=== PATIENT | male | born 1985 | race Caucasian/White ===

== ENCOUNTER 2016-11-17 11:35 | Inpatient (IN) ==
[2016-11-17] MEDS ORDERED: ASPIRIN PO STA (11:51)
[2016-11-17 12:12] LABS: MANUAL DIFF NEEDED? NO
[2016-11-17 12:15] LABS: BASO% 0.3 % (0.0-0.8); EOS# 0.14 X1000 (0.0-0.7); HEMATOCRIT 48.5 % (42.0-52.0); HEMOGLOBIN 16.7 g/dL (14.0-18.0); LYMPH# 1.82 X1000 (1.2-3.4); LYMPH% 25.7 % (20.5-51.1); MCH 30.6 PG (27-31); MCHC 34.4 g/dL (33-37); MCV 88.8 FL (81-99); MONO# 0.75 X1000 (0.11-0.59); MONO% 10.6 % (1.7-9.3); MPV 10.2 FL (7.4-10.4); NEUT% 61.4 % (42.2-75.2); PLT 274 X1000 (130-400); RBC 5.46 XMIL (4.7-6.1)
--- NOTE | 2016-11-17 12:20 | Diag Imaging Result Doc PS360 ---
EXAM: CHEST-2 VIEWS HISTORY: CP TECHNIQUE: Two views COMPARISON: 10/14/2016 FINDINGS: The lungs are well expanded. The heart is not enlarged. The vessels are not distended. There are no infiltrates. No pleural effusions. IMPRESSION: No acute abnormality. Electronically signed by Dk Agarwal 11/17/2016 12:18 PM
[2016-11-17 12:21] LABS: INR 0.96; PROTIME 10.1 Seconds (9.2-11.7); PTT 29.7 Seconds (22.0-36.0)
[2016-11-17 12:33] LABS: AGAP 16; ALBUMIN 5.1 g/dL (3.5-5.0); ALKALINE PHOSPHATASE 102 U/L (32-122); BUN 14 mg/dL (8-22); CALCIUM 9.3 mg/dL (8.8-10.2); CHLORIDE 102 mmol/L (98-107); CK PROFILE 332 U/L (24-204); COSMO 281; GOT 35 U/L (10-34); GPT 46 U/L (10-44); MAGNESIUM 2.3 mg/dL (1.5-2.7); POTASSIUM 4.2 mmol/L (3.5-5.1); SODIUM 140 mmol/L (136-145); TCO2 22 mmol/L (25-35); TOTAL BILIRUBIN 0.44 mg/dL (0.20-1.00); TOTAL PROTEIN 7.4 g/dL (6.3-8.3)
[2016-11-17 12:47] LABS: CK-MB 3.46 ng/mL (0.0-5.0)
[2016-11-17] MEDS ORDERED: ZOFRAN IV ONE (12:56)
[2016-11-17] MEDS ORDERED: NS 1,000 ML IV ONE (12:56)
[2016-11-17] MEDS ORDERED: MORPHINE IV ONE (12:56)
--- NOTE | 2016-11-17 13:56 | EKG Report ---
Test Performed on : 11/17/2016 11:52:19 AM Test Reason : Chest Pain Blood Pressure : / mmHG Vent. Rate : 074 BPM Atrial Rate : 074 BPM P-R Int : 128 ms QRS Dur : 084 ms QT Int : 370 ms P-R-T Axes : 038 053 011 degrees QTc Int : 410 ms Normal sinus rhythm. Normal ECG No previous ECGs available Unconfirmed Result
--- NOTE | 2016-11-17 14:06 | Diag Imaging Result Doc PS360 ---
EXAM: CT THORAX/ABDOMEN/PELVIS HISTORY: CP, LUQ PAIN, N/V, HX ALCOHOLISM TECHNIQUE: CT of the chest with intravenous contrast and dose reduction; CT of the abdomen and pelvis with intravenous contrast and dose reduction (clarity.) COMMENT: There are no abnormal fluid collections. There is no evidence of significant adenopathy. There is dependent atelectasis in both lower lobes. There is no evidence of acute pulmonary parenchymal disease otherwise. ABDOMEN: The liver, spleen, adrenal glands, pancreas and gallbladder are unremarkable. The kidneys are without evidence of hydronephrosis or mass. There is no evidence of bowel obstruction or significant adenopathy. Pelvis: The appendix is not distended or inflamed in appearance. There is some gas and stool in the distal colon. The urinary bladder is unremarkable. There is vacuum disc phenomenon at L5-S1 and bilateral spondylolysis at L5. No evidence of acute bony abnormality is present. IMPRESSION: No acute disease. Electronically signed by Noam Costa 11/17/2016 2:04 PM
[2016-11-17] MEDS ORDERED: G.I. COCKTAIL PO ONE (14:12)
--- NOTE | 2016-11-17 14:30 | PROVIDER DOCUMENTATION ---
HPI-Abdominal Pain/GI Problem - General Chief Complaint: Chest Pain Stated Complaint: GENERAL Time Seen by Provider: 11/17/16 12:44 Source: patient Allergies/Adverse Reactions: Patient Allergies Allergy/AdvReac Type Severity Reaction Status Date / Time No Known Allergies Allergy Verified 11/17/16 12:35 Home Medications: Home Medication List Medication Instructions Recorded Confirmed Last Taken Type NK [No Home Medications] 11/17/16 11/17/16 Unknown History - History of Present Illness-ABD Nature of Presenting Problems: PT STS HE WOKE UP THIS MORNING WITH CHEST, ABD PAIN, AND LEFT ARM PAIN WITH N/ V. STS HE WENT ON TO WORK, BUT THEN PAIN GOT WORSE SO HE CAME TO ER. DENIES CARDIAC HX. STS WAS FORMER ALCOHOLIC BUT STOPPED DRINKING 2 YEARS AGO WHEN HE GOT A GOOD JOB. Abdominal Pain Onset Location: reports: LUQ, epigastric Pain Radiation: reports: chest Quality of Pain: reports: sharp Severity in ED: reports: moderate Onset/Duration: reports: this morning Timing: reports: still present Associated Symptoms: reports: arm pain, chest pain, nausea, vomiting. denies: constipation, diaphoresis, diarrhea, shortness of breath, pain with inspiration Review of Systems - Adult - REVIEW OF SYSTEMS - ADULT Constitutional: reports: no symptoms reported. denies: fever Eyes: reports: no symptoms reported. denies: blurred vision Ears, Nose, Mouth & Throat: reports: no symptoms reported Cardiovascular: reports: see HPI, chest pain. denies: palpitations, syncope Respiratory: reports: no symptoms reported. denies: shortness of breath Gastrointestinal: reports: see HPI, abdominal pain, nausea, vomiting. denies: constipation, diarrhea Genitourinary: reports: no symptoms reported. denies: dysuria Musculoskeletal: reports: no symptoms reported Integumentary: reports: no symptoms reported Neurological: reports: no symptoms reported Psychiatric: reports: no symptoms reported Endocrine: reports: no symptoms reported Hematologic/Lymphatic: reports: no symptoms reported Allergic/Immunologic: reports: no symptoms reported All Other Systems: Reviewed and Negative Past History - Adult - PAST MEDICAL HISTORY-ADULT Review of Records: reports: Nursing Assessment Review, Medications Reviewed, Social history reviewed & non-contributory. Major Childhood Illnesses: reports: denies history Cardiovascular: reports: denies history Respiratory: reports: denies history Gastrointestinal: reports: denies history Genitourinary: reports: denies history Musculoskeletal: reports: denies history Neurological: reports: Seizures/Epilepsy Psychiatric: reports: bipolar Endocrine/Immune: reports: denies history - SOCIAL HISTORY Smoking: cigarettes Provider spent 3-5 mins advising pt. on dangers of tobacco.: Discussed manners to quit use, and f/u contacts for add'l counseling. Substance Use: none presently/history of abuse Alcohol Use Frequency: sober (former use) Physical Exam-General - PHYSICAL EXAM-ADULT Initial Vital Signs Reviewed: Yes - CONSTITUTIONAL General Appearance: appears well, alert, mild distress - EYES Eyes: PERRL/EOMI, pink conjunctivae - HEAD, EARS, NOSE, MOUTH & THROAT HENMT: moist mucous membranes - RESPIRATORY Respiratory: chest non-tender, lungs clear, normal breath sounds, no pleuratic chest pain, no respiratory distress, no accessory muscle use. negative: rhonchi , wheezing - CARDIOVASCULAR Cardiovascular: regular rate, rhythm - GASTROINTESTINAL (ABDOMEN) Abdominal Exam: normal bowel sounds, soft, no organomegaly, no pulsatile mass, tenderness (EPIGASTRIC AND LUQ). negative: distended, guarding, rigid - MUSCULOSKELETAL Back Exam: normal inspection, no CVA tenderness, no vertebral tenderness Extremity: normal range of motion, normal gait, normal capillary refill - SKIN Integumentary: normal color, normal turgor, warm/dry - NEUROLOGIC Neurologic: grossly normal, no motor/sensory deficits - PSYCHIATRIC Psych/Mental Status: normal mood/affect, oriented x 3 Progress - PLAN OF CARE/RESULTS Progress/Plan/Lab Results: Vital Signs - 8 hr 11/17/16 11:47 11/17/16 12:43 11/17/16 14:25 Temperature 98.3 F 98.3 F Pulse Rate 82 78 82 Respiratory Rate 18 17 18 Blood Pressure 171/106 152/92 152/95 O2 Sat by Pulse Oximetry 100 99 100 Laboratory Results - last 24 hr 11/17/16 11/17/16 11/17/16 11:57 11:57 11:57 WBC 7.09 RBC 5.46 Hgb 16.7 Hct 48.5 MCV 88.8 MCH 30.6 MCHC 34.4 RDW Std Deviation 12.4 Plt Count 274 MPV 10.2 Immature Gran % (Auto) 0.0 Neut % (Auto) 61.4 Lymph % (Auto) 25.7 [place] % (Auto) 10.6 H Eos % (Auto) 2.0 Baso % (Auto) 0.3 Immature Gran # (Auto) 0.00 Neut # (Auto) 4.36 Lymph # (Auto) 1.82 [place] # (Auto) 0.75 H Eos # (Auto) 0.14 Baso # (Auto) 0.02 PT INR PTT (Actin FS) D-Dimer 0.21 Sodium 140 Potassium 4.2 Chloride 102 Carbon Dioxide 22 L Anion Gap 16 BUN 14 Creatinine 0.9 Estimated GFR/1.73 m2 > 60 BUN/Creatinine Ratio 16 Glucose 110 H Calculated Osmolality 281 Calcium 9.3 Magnesium 2.3 Total Bilirubin 0.44 AST 35 H ALT 46 H Alkaline Phosphatase 102 Creatine Kinase 332 H Creatine Kinase Index 1.0 CK-MB (CK-2) 3.46 Troponin T Lhi-G-Xyjqimxccqn Pept Total Protein 7.4 Albumin 5.1 H Globulin 2.3 Albumin/Globulin Ratio 2.2 Amylase Lipase 11/17/16 11/17/16 11/17/16 11:57 11:57 11:57 WBC RBC Hgb Hct MCV MCH MCHC RDW Std Deviation Plt Count MPV Immature Gran % (Auto) Neut % (Auto) Lymph % (Auto) [place] % (Auto) Eos % (Auto) Baso % (Auto) Immature Gran # (Auto) Neut # (Auto) Lymph # (Auto) [place] # (Auto) Eos # (Auto) Baso # (Auto) PT 10.1 INR 0.96 PTT (Actin FS) 29.7 D-Dimer Sodium Potassium Chloride Carbon Dioxide Anion Gap BUN Creatinine Estimated GFR/1.73 m2 BUN/Creatinine Ratio Glucose Calculated Osmolality Calcium Magnesium Total Bilirubin AST ALT Alkaline Phosphatase Creatine Kinase Creatine Kinase Index CK-MB (CK-2) Troponin T < 0.010 Evk-M-Uwwwwdrnhca Pept < 5 L Total Protein Albumin Globulin Albumin/Globulin Ratio Amylase Lipase 11/17/16 11/17/16 11:57 11:57 WBC RBC Hgb Hct MCV MCH MCHC RDW Std Deviation Plt Count MPV Immature Gran % (Auto) Neut % (Auto) Lymph % (Auto) [place] % (Auto) Eos % (Auto) Baso % (Auto) Immature Gran # (Auto) Neut # (Auto) Lymph # (Auto) [place] # (Auto) Eos # (Auto) Baso # (Auto) PT INR PTT (Actin FS) D-Dimer Sodium Potassium Chloride Carbon Dioxide Anion Gap BUN Creatinine Estimated GFR/1.73 m2 BUN/Creatinine Ratio Glucose Calculated Osmolality Calcium Magnesium Total Bilirubin AST ALT Alkaline Phosphatase Creatine Kinase Creatine Kinase Index CK-MB (CK-2) Troponin T Uwn-R-Utjbjokqhpk Pept Total Protein Albumin Globulin Albumin/Globulin Ratio Amylase 35 Lipase 37 Orders Category Date Time Status Saline Loc NOW Care 11/17/16 12:56 Active CHEST-2 VIEWS [RAD] Stat Exams 11/17/16 11:[address] THORAX/ABDOMEN/PELVIS [CT] Stat Exams 11/17/16 13:20 Completed AMYLASE [CHEM] Stat Lab 11/17/16 11:57 Completed CBC WITH ELECTRONIC DIFF [HEME] Stat Lab 11/17/16 11:57 Completed CK PROFILE [SP CHEM] Stat Lab 11/17/16 11:57 Completed CK PROFILE [SP CHEM] Stat Lab 11/17/16 14:10 Uncollected COMPREHENSIVE METABOLIC PANEL [CHEM] Stat Lab 11/17/16 11:57 Completed D-DIMER [CHEM] Stat Lab 11/17/16 11:57 Completed LIPASE [CHEM] Stat Lab 11/17/16 11:57 Completed MAGNESIUM [CHEM] Stat Lab 11/17/16 11:57 Completed PRO B-NATRIURETIC PEPTIDE Stat Lab 11/17/16 11:57 Completed PROTIME WITH INR [COAG] Stat Lab 11/17/16 11:57 Completed PTT [COAG] Stat Lab 11/17/16 11:57 Completed TROPONIN T Stat Lab 11/17/16 11:57 Completed TROPONIN T Stat Lab 11/17/16 14:11 Uncollected 0.9% Sodium Chloride Inj [Ns] 1,000 ml Med 11/17/16 12:56 Discontinued IV 999 mls/hr Aspirin Med 11/17/16 11:51 Discontinued 325 mg PO STAT STA Lido/Ross Alk/Al&mg Hydrox [G.i. Cocktail] Med 11/17/16 14:12 Discontinued 30 ml PO NOW ONE Morphine Med 11/17/16 12:56 Discontinued 4 mg IV NOW ONE Ondansetron [Zofran] Med 11/17/16 12:56 Discontinued 4 mg IV NOW ONE EKG [EKG] Stat Ther 11/17/16 11:51 Draft EKG [EKG] Stat Ther 11/17/16 14:12 Ordered DISCUSSED PT EXAM, HX, LABS, AND IMAGING WITH DR. SANABRIA WHO AGREES WITH DECISION TO ADMIT. Result Diagrams: 11/17/16 11:57 11/17/16 11:57 - XRAY 1 XRAY Study: Chest Impression: Normal, See EMR Report XRAY Interpretation: NEGATIVE.-DR. RAMOS - CT/MRI 1 CT Study: Abdomen, Pelvis, Thorax Impression: Normal, See EMR Report CT Results: NEGATIVE.-DR. WILD - CONSULTS/PCP/HOSPITALIST Notification #1 *Consult/PCP/Hospitalist*: [facility] [place] FOR DR. PURVIS Time Discussed: 15:40 Consult Disposition: Admit Departure - Departure Date of Disposition Decision: 11/17/16 Time of Disposition Decision: 15:40 DIAGNOSIS: Elevated CPK Abdominal pain Qualifiers: Abdominal location: left upper quadrant Qualified Code(s): R10.12 - Left upper quadrant pain Nausea & vomiting Qualifiers: Vomiting type: unspecified Vomiting Intractability: non-intractable Qualified Code(s): R11.2 - Nausea with vomiting, unspecified Disposition: ADMITTED INPATIENT 09 Certified Medical Emergency: Emergent Condition: Good Referrals and Follow-Ups: None,PCP [Primary Care Provider] - Discharge Education: Smoking Cessation, Tips for Success - Critical Care Note This patient required my direct & personal management of CC.: No Attestation - Physician/ CHRISTIAN Attestation Patient care was provided by Advanced Practice Provider:: Yes Advanced Practice Provider:: Allyson Eller Advanced Practice Provider documentation review:: The Mid-level provider documentation, treatment plan and medical decision making was reviewed by the physician who agrees with all treatment and medical decision making by the [facility]. The physician spent face to face time with patient:: No Advanced Practice Provider documentation review:: Supervising physician onsite and consulted in the evaluation and care of this patient. The physician did not have a face to face encounter with the patient.
[2016-11-17 15:19] LABS: CK INDEX 0.6 (0.0-2.5); CK-MB 4.43 ng/mL (0.0-5.0)
[2016-11-17 16:52] LABS: URINE CULTURE NEEDED? NO; URINE MICRO REVIEW NEEDED? NO; URINE SOURCE CLEAN CATCH
[2016-11-17 16:59] LABS: BILIRUBIN URINE NEGATIVE (NEGATIVE); BLOOD URINE NEGATIVE (NEGATIVE); COLOR YELLOW; GLUCOSE URINE NEGATIVE (NEGATIVE); LEUKOCYTES URINE NEGATIVE (NEGATIVE); NITRITE URINE NEGATIVE (NEGATIVE); PROTEIN URINE TRACE mg/dL (NEGATIVE); TURBIDITY URINE CLEAR (CLEAR); UROBILINOGEN URINE NORMAL (NORMAL)
[2016-11-17 17:03] LABS: UR EPITHELIAL CELLS <10 /HPF (<10); URINE BACTERIA NEGATIVE /HPF; URINE RBC <10 /HPF (<10); URINE WBC <10 /HPF (<10)
[2016-11-17 17:04] LABS: SP GRAVITY URINE 1.015
[2016-11-17] MEDS ORDERED: NITROGLYCERIN SL PRN (19:16)
[2016-11-17] MEDS ORDERED: ZOFRAN IV PRN (19:16)
--- NOTE | 2016-11-17 19:53 | HISTORY AND PHYSICAL ---
HISTORY OF PRESENT ILLNESS: He reports that this morning he started having nausea, experienced some left-sided chest pain. This continued to persist. The pain seemed to radiate down his left side. He said he had a little water and maybe a sausage biscuit this morning. He denies any past medical history. He denies being on any medications. He apparently has not had this before. SOCIAL HISTORY: He denies alcohol. He denies smoking. He does construction, puts shingles up on the roof. FAMILY HISTORY: Father apparently with a history of seizures and stroke and heart attack. REVIEW OF SYSTEMS: He does not report any change in weight or fever or chills. No change in his bowels. No gross hematuria or dysuria. No focal neurologic changes. Just today basically nausea and nondescript left-sided chest pain. PHYSICAL EXAMINATION: VITAL SIGNS: Temperature 97.4, pulse 62, respirations 18, blood pressure 154/85. Weight 186 pounds. Height 6 feet. HEENT: Pupils are equal, round. LUNGS: Clear in all lung noel. CARDIOVASCULAR: Regular rhythm and rate without murmur or S3. ABDOMEN: Soft. SKIN: Warm and dry. LABORATORY DATA: White count 7090, hematocrit 48, platelet count 274,000. Sodium 140, potassium 4.2, chloride 102, bicarb 22, BUN 14, creatinine 0.9, blood sugar 110. CPK 717 but his troponin was less than 0.01. Pro-time is 10.1, PTT is 29. Urinalysis unremarkable. Chest, abdominal and pelvic CT: No acute disease. Abdomen, liver, spleen, glands, pancreas, gallbladder all unremarkable. CT of the chest: No abnormal fluid collections or infiltrates. There is dependent atelectasis in both lower lobes. X-ray: No acute abnormality. ASSESSMENT AND PLAN: Nausea, nonspecific chest pain. Question whether he was a little dehydrated. It looks like he has mild myopathic irritation, rhabdomyolysis. We are going to give him some fluid. He does not show any sign of acidosis, so will just do normal saline. Will run it at 125 mL per hour. Will check serial cardiac enzymes, troponin, and follow his CPK. Will get MB fraction with it. Will check his serial EKGs. He is hungry. Will give him a regular diet so he can eat. I will hold him n.p.o. after midnight in case we decide to do a treadmill in the morning. We will check T4, TSH, cortisol level, B12, and folate in the morning and follow up on his electrolytes. We do need to check probably electrolytes tonight, so we will get a Chem-22 and a magnesium this evening. cc: Delfino Alvarado MD
[2016-11-17 20:35] LABS: UR AMPHETAMINES QUAL NONE DETECTED (NONE DETECT); UR BARBITUATES QUAL NONE DETECTED (NONE DETECT); UR BENZODIAZEPIN QUAL NONE DETECTED (NONE DETECT); UR CANNABINOIDS QUAL NONE DETECTED (NONE DETECT); UR COCAINE QUAL NONE DETECTED (NONE DETECT); UR METHADONE QUAL NONE DETECTED (NONE DETECT); UR OPIATES QUAL PRESUMPTIVE POSITIVE (NONE DETECT); UR OXYCODONE QUAL NONE DETECTED (NONE DETECT); UR PCP QUAL NONE DETECTED (NONE DETECT)
[2016-11-17] MEDS: NS 1,000 ML IV SCH (21:08)
[2016-11-17] MEDS: TYLENOL PO PRN (21:12)
[2016-11-18 03:28] LABS: MANUAL DIFF NEEDED? NO
[2016-11-18 03:46] LABS: INR 0.95; PROTIME 9.9 Seconds (9.2-11.7); PTT 28.2 Seconds (22.0-36.0)
[2016-11-18 03:50] LABS: AGAP 11; ALBUMIN 3.7 g/dL (3.5-5.0); ALKALINE PHOSPHATASE 79 U/L (32-122); BUN 13 mg/dL (8-22); CALCIUM 8.6 mg/dL (8.8-10.2); CHLORIDE 102 mmol/L (98-107); COSMO 282; GOT 20 U/L (10-34); GPT 35 U/L (10-44); MAGNESIUM 2.3 mg/dL (1.5-2.7); POTASSIUM 4.3 mmol/L (3.5-5.1); SODIUM 141 mmol/L (136-145); TCO2 28 mmol/L (25-35); TOTAL BILIRUBIN 0.16 mg/dL (0.20-1.00); TOTAL PROTEIN 5.7 g/dL (6.3-8.3)
[2016-11-18 04:33] LABS: BASO% 0.3 % (0.0-0.8); EOS# 0.29 X1000 (0.0-0.7); EOS% 4.5 % (0.0-10.0); HEMATOCRIT 44.2 % (42.0-52.0); IMM GRAN# 0.02 X1000 (0.0-0.04); IMM GRAN% 0.3 % (0.0-0.5); LYMPH# 2.63 X1000 (1.2-3.4); LYMPH% 41.2 % (20.5-51.1); MCH 30.9 PG (27-31); MCHC 33.9 g/dL (33-37); MCV 90.9 FL (81-99); MONO# 0.65 X1000 (0.11-0.59); MONO% 10.2 % (1.7-9.3); MPV 10.4 FL (7.4-10.4); NEUT% 43.5 % (42.2-75.2); PLT 236 X1000 (130-400); RBC 4.86 XMIL (4.7-6.1)
--- NOTE | 2016-11-18 06:45 | EKG Report ---
Test Performed on : 11/18/2016 05:47:02 AM Test Reason : chest pain Blood Pressure : / mmHG Vent. Rate : 056 BPM Atrial Rate : 056 BPM P-R Int : 142 ms QRS Dur : 080 ms QT Int : 426 ms P-R-T Axes : 067 057 045 degrees QTc Int : 411 ms Sinus bradycardia. Otherwise normal ECG When compared with ECG of 17-NOV-2016 14:23, (Unconfirmed) No significant change was found Confirmed by Mega Marie MD ([id number]) on 11/20/2016 12:57:44 PM
[2016-11-18 06:51] LABS: HEMOGLOBIN A1C 4.8 % (4.8-6.0)
--- NOTE | 2016-11-18 06:53 | EKG Report ---
Test Performed on : 11/17/2016 2:23:31 PM Test Reason : CP Blood Pressure : / mmHG Vent. Rate : 067 BPM Atrial Rate : 067 BPM P-R Int : 138 ms QRS Dur : 090 ms QT Int : 410 ms P-R-T Axes : 064 039 024 degrees QTc Int : 433 ms Normal sinus rhythm. Normal ECG When compared with ECG of 17-NOV-2016 11:52, (Unconfirmed) No significant change was found Unconfirmed Result
[2016-11-18] MEDS ORDERED: PRILOSEC PO SCH (07:00)
[2016-11-18 07:10] LABS: FREE T4 0.99 ng/dL (0.93-1.70)
[2016-11-18] MEDS ORDERED: LOVENOX SUBQ SCH (08:00)
[2016-11-18] MEDS ORDERED: ASPIRIN PO SCH (09:00)
[2016-11-18] MEDS: NS 1,000 ML IV SCH ×2 (11:25→18:40)
--- NOTE | 2016-11-18 12:42 | CONSULTATION ---
DATE OF CONSULTATION: 11/18/2016 REASON FOR CONSULTATION: Cardiology was consulted for chest pain. HISTORY: Mr. Clay Brand was admitted with chest discomfort. He has upper left chest pain associated with some tenderness and symptoms worsened with radiation to the left side. He had drank water maybe with some biscuits in the morning. There is no previous past medical history of having similar problems. He works construction. 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 As far as his chest pains are concerned, at the time of my examination, he complained of tenderness, otherwise, no diaphoresis. No pleuritic component of chest pain. FOURTEEN-POINT REVIEW OF SYSTEMS: Gastrointestinal System: There is no history of nausea, vomiting, diarrhea. There is no history of melena. Central Nervous System: No focal weakness to suggest a CVA or TIA. Genitourinary: There is no dysuria or hematuria. PAST MEDICAL HISTORY: There is no history of hypertension, coronary artery disease, or any seizure disorder. SOCIAL HISTORY: The patient denies alcohol or tobacco abuse. He does construction. FAMILY HISTORY: Father has history of seizure disorder and CAD. PHYSICAL EXAMINATION: Blood pressure: 150/76. Cardiovascular System: Normal jugular venous pressure. There is no thyromegaly. No carotid bruit. First and second heart sounds were heard. There is no S3 gallop. Respiratory System: Normal air entry. There is no crepitations or rhonchi. Abdomen: Soft, nontender. There was no guarding or rigidity. Bowel sounds were heard. Central nervous system: Alert and was moving all 4 extremities. Extremities: Examination of extremities revealed no pedal edema. HEENT: Atraumatic, normocephalic. Pupils were equal and reacting to light. Chest Wall: Examination of his chest wall revealed tenderness in the 3rd and 4th left costochondral junction. ASSESSMENT AND PLAN: Mr. Clay Brand is a 31-year-old, gentleman, who was admitted with chest discomfort. He has reproducible chest pain more suggestive of costochondritis, however, he had an elevated CK. It could be related to rhabdomyolysis, however, his cardiac enzymes and indicis were negative. Electrocardiogram revealed normal sinus rhythm, normal EKG. PLAN: We will get an echocardiogram to assess cardiac and valvular function. We will set him up to undergo a Cardiolite stress test to assess for and rule out ischemia. I have not made any other changes to his medications. Thank you for the consult. We will follow hospital course. Sincerely, cc: Matthias Veronica MD
[2016-11-18] MEDS ORDERED: LEXISCAN ONE (12:51)
--- NOTE | 2016-11-18 15:07 | Diag Imaging Result Document ---
PROCEDURE NAME: MYOCARDIAL PERF SCAN, STR/REST - 11/18/2016 INDICATION: Chest pain. PROCEDURES PERFORMED: 1. Rodolfo protocol stress (results dictated separately by primary physician). 2. One-day stress/rest myocardial perfusion imaging. PROCEDURE IN DETAIL: Mr. Brand was brought to the nuclear laboratory and had a resting study, with injection of 11.9 mCi of technetium-99m sestamibi to usual imaging protocol utilized. He subsequently was brought back and had a Rodolfo protocol stress. At peak stress, was injected with 36.9 mCi of technetium-99m sestamibi with usual imaging protocol utilized. FINDINGS: 1. No evidence of abnormal extracardiac uptake. 2. TID ratio 0.85. 3. Perfusion imaging demonstrates, what appears to be, normal homogeneous uptake of radiotracer throughout the myocardial segments. No evidence of ischemic-related defects. 4. Normal ejection fraction of 67%. End-diastolic volume 124. End systolic volume 41. Normal wall motion. cc: MD Delfino Sunshine MD
[2016-11-18 16:14] VITALS: BP 133/60
[2016-11-18] MEDS: TYLENOL PO PRN (16:47)
--- NOTE | 2016-11-18 17:35 | DISCHARGE SUMMARY ---
ADMISSION DATE: 11/17/2016 DISCHARGE DATE: Reports state he was admitted on 11/17/2016. He came in experiencing some left-sided chest pain which continued to persist at work. He was having nausea and vomiting. The pain seemed to radiate down his left side. He state he ate a little sausage biscuit this morning, otherwise did not each much. He was given some fluid. His nausea resolved. CPK and troponin were unremarkable. EKG without any ischemic type signs. He underwent myocardial perfusion scan on 11/18 which was completely unremarkable, a good study. No further chest pain. No evidence of any coronary insufficiency and he wanted to go home. Suspect musculoskeletal pain. He will discharge home. We will continue Really he was not on any medication, so no medication to go home with. I do want him to find primary care, and I told him it is important that he hydrate when he is working, he works for a [employer] supervisor. cc: Delfino Alvarado MD
--- NOTE | 2016-11-19 12:04 | ECHO REPORT ---
ORDER DATE: 11/18/2016 INDICATION: Chest pain. FINDINGS: 1. The right atrium appears normal in size. 2. Mild tricuspid regurgitation. RV systolic pressure of 30. 3. Normal RV size and systolic function. 4. Mild pulmonic insufficiency. 5. Mild left atrial enlargement at 4.5 cm. 6. No mitral prolapse. Mild mitral regurgitation. 7. Normal LV size, end-diastolic dimension of 5 cm. Normal wall thicknesses with a posterior and interventricular septal wall thickness 1 cm each. Normal LV systolic function. Estimated EF of 60% to 65% with normal wall motion. 8. Aortic valve opens well. It is trileaflet. No evidence of stenosis or insufficiency. 9. Aorta appears normal visualized segments. 10. No pericardial effusion seen. cc: MD Delfino Sunshine MD
--- NOTE | 2016-12-02 11:06 | ED EKG INTERP ---
This chart was entered by Gurinder Morgan Scribe, acting as scribe for Lyndon Mccabe MD. EKG Interpretation - EKG Time of EKG reading by physician:: 12:12 EKG Read and Signed by:: Lyndon Mccabe EKG Interpretation (*Must complete 3 of following elements*): Normal Rate: 74 Rhythm: NSR [place]: normal QRS: normal [place] Interval: normal ST Wave: normal - EKG # 2 Time of EKG reading by physician:: 14:37 EKG Read and Signed by:: Lyndon Mccabe EKG Interpretation (*Must complete 3 of following elements*): Normal Rate: 67 Rhythm: NSR [place]: normal QRS: normal [place] Interval: normal ST Wave: normal Attestation - Physician/ CHRISTIAN Attestation The physician spent face to face time with patient:: No Advanced Practice Provider documentation review:: Supervising physician onsite and consulted in the evaluation and care of this patient. The physician did not have a face to face encounter with the patient. This chart was documented by the indicated scribe, (Gurinder Morgan Scribe) and accurately reflects the services I performed and decisions made by me, Lyndon Mccabe MD, as attested by the provider's signature.
== END 2016-11-18 18:43 | disposition home or self-care (01) ==
LOC: 4N 11:35 → ED 11:35 → OBSVTOIN 16:31
PROVIDERS: ATTEND Emergency Medicine

== ENCOUNTER 2018-10-18 17:00 | Inpatient (IN) ==
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
--- NOTE | 2018-10-18 19:12 | Diag Imaging Result Doc PS360 ---
EXAM: CHEST-1 VIEW HISTORY: pre op TECHNIQUE: Chest single view COMPARISON: 07/10/2017 FINDINGS: The lungs are well expanded. The heart is not enlarged. The vessels are not distended. There are no infiltrates. No effusion identified. IMPRESSION: Negative exam. Electronically signed by Dk Agarwal 10/18/2018 7:10 PM
[2018-10-18 19:26] LABS: BASO# 0.03 X1000 (0.0-0.2); BASO% 0.3 % (0.0-0.8); EOS# 0.16 X1000 (0.0-0.7); EOS% 1.7 % (0.0-10.0); HEMATOCRIT 43.7 % (42.0-52.0); HEMOGLOBIN 15.1 g/dL (14.0-18.0); IMM GRAN# 0.05 X1000 (0.0-0.04); IMM GRAN% 0.5 % (0.0-0.5); LYMPH# 2.23 X1000 (1.2-3.4); LYMPH% 23.5 % (20.5-51.1); MCH 29.8 PG (27-31); MCHC 34.6 g/dL (33-37); MCV 86.4 FL (81-99); MONO# 0.97 X1000 (0.11-0.59); MONO% 10.2 % (1.7-9.3); MPV 9.5 FL (7.4-10.4); NEUT# 6.05 X1000 (1.4-6.5); NEUT% 63.8 % (42.2-75.2); PLT 295 X1000 (130-400); RBC 5.06 XMIL (4.7-6.1); RDW 12.8 % (11.5-14.5); WBC 9.49 X1000 (4.8-10.8)
[2018-10-18 20:01] LABS: AGAP 12; ALB/GLOB RATIO 1.3; ALBUMIN 3.9 g/dL (3.5-5.0); ALKALINE PHOSPHATASE 99 U/L (32-122); BUN 14 mg/dL (8-22); CALCIUM 8.9 mg/dL (8.8-10.2); CHLORIDE 103 mmol/L (98-107); COSMO 280; CREATININE 0.8 mg/dL (0.7-1.2); ESTIMATED GFR > 60; GLUCOSE 127 mg/dL (70-104); GOT 23 U/L (10-34); GPT 39 U/L (10-44); POTASSIUM 4.3 mmol/L (3.5-5.1); SODIUM 139 mmol/L (136-145); TCO2 24 mmol/L (25-35); TOTAL PROTEIN 6.8 g/dL (6.3-8.3)
[2018-10-18] MEDS ORDERED: NS 1,000 ML IV ONE (20:09)
[2018-10-18] MEDS ORDERED: TYLENOL PO PRN (20:09)
[2018-10-18] MEDS ORDERED: MORPHINE IV PRN (20:09)
[2018-10-19] MEDS: DILAUDID IV PRN ×4 (01:18→21:00)
[2018-10-19] MEDS: ZOFRAN IV PRN ×4 (02:07→21:00)
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
[2018-10-19] MEDS ORDERED: MARCAINE 0.25% PF ONE (08:31)
[2018-10-19] MEDS ORDERED: DIPRIVAN 1% ONE (08:47)
[2018-10-19] MEDS ORDERED: SUFENTA ONE (08:50)
[2018-10-19] MEDS ORDERED: KEFZOL 1 GM/D5W 1 GM/50 ML IVPB IV ONE (08:51)
[2018-10-19] MEDS ORDERED: KEFZOL 2 GM/D5W 2 GM/50 ML IVPB ONE (09:14)
[2018-10-19] MEDS ORDERED: DECADRON ONE (09:58)
[2018-10-19] MEDS ORDERED: ZOFRAN ONE (09:58)
[2018-10-19] MEDS ORDERED: SENOKOT PO PRN (10:01)
[2018-10-19] MEDS ORDERED: PERCOCET-5 PO PRN (10:05)
[2018-10-19] MEDS: DILAUDID ONE ×4 (10:38→11:04)
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
[2018-10-19] MEDS: KEFZOL 1 GM/D5W 1 GM/50 ML IVPB IV SCH (16:40)
[2018-10-19] MEDS: PERIDEX MT SCH (21:14)
[2018-10-20] MEDS: KEFZOL 1 GM/D5W 1 GM/50 ML IVPB IV SCH ×2 (02:00→09:26)
[2018-10-20] MEDS: ZOFRAN IV PRN (02:48)
[2018-10-20] MEDS: DILAUDID IV PRN (02:49)
[2018-10-20] MEDS ORDERED: LOVENOX SUBQ SCH (06:00)
--- NOTE | 2018-10-20 09:07 | ORTHOPAEDICS PROGRESS NOTE ---
DATE: 10/20/2018 SUBJECTIVE: Mr. Brand resting well this morning. Says his foot feels better and he can move it better. OBJECTIVE: Right lower extremity exam: Splint is clean, dry, and intact. He has good capillary refill to all the toes. He has good sensation to light touch to the toes. He is able to move the toes. ASSESSMENT: Status post right midfoot open reduction and percutaneous pinning. PLAN: Mr. Brand is going to be nonweightbearing right lower extremity. I discussed with him about elevating it, getting a lot of the swelling out. This is just a temporary fix at this point, staging for a fusion in a few weeks. He will be discharged from the hospital today, and I will see him next week in clinic. cc: Asif Reddy MD
[2018-10-20] MEDS: PERIDEX MT SCH (09:26)
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
[2018-10-20 14:12] VITALS: BP 137/62
== END 2018-10-20 13:11 | disposition home or self-care (01) | DRG 505 ==
LOC: ED 17:00 → 4N 21:30
PROVIDERS: ADMIT Orthopaedic Surgery; ATTEND Orthopaedic Surgery